=== PATIENT | female | born 1960 | race Two or more races ===

== ENCOUNTER 2018-02-10 07:42 | Outpatient (CLI) | payer OTHER | END 2018-02-10 07:45 | disposition home or self-care (01) | LOC: SONOGRAMA 07:42 | DX: E04.2 Nontoxic multinodular goiter (principal) ==

== ENCOUNTER → 2019-10-12 06:00 | Outpatient (CLI) | payer OTHER ==
[~2019-10-12 06:00] MED LIST: COZAAR50 MG PO
== END | disposition home or self-care (01) ==
LOC: LAB 06:00 → ADM 08:15 → CIR.AMB 10-19 08:15 → EDSTATUS 10-19 08:15 → CIR.AMB 10-19 08:45
PROVIDERS: ATTEND Orthopaedic Surgery
DX: M24.821 Other specific joint derangements of right elbow, not elsewhere classified (principal); M67.931 Unspecified disorder of synovium and tendon, right forearm; Z20.828 Contact with and (suspected) exposure to other viral communicable diseases

== ENCOUNTER 2024-05-25 15:17 | Outpatient (CLI) | payer OTHER | END 2024-05-25 15:21 | disposition home or self-care (01) | LOC: SONOGRAMA 15:17 | PROVIDERS: ATTEND Pathology Anatomic Pathology & Clinical Pathology | DX: D44.0 Neoplasm of uncertain behavior of thyroid gland (principal); E04.2 Nontoxic multinodular goiter ==

== ENCOUNTER 2024-07-31 08:00 | Inpatient (IN) | payer OTHER ==
[~2024-07-31] VITALS: Ht 170.2 cm; Wt 44.5 kg
[2024-07-31] MEDS ORDERED: NORVASC5 MG PO (08:34)
[2024-07-31] MEDS ORDERED: FOSAMAX70 MG PO (08:35)
[2024-07-31] MEDS ORDERED: D3-501250 MCG PO (08:36)
[2024-07-31 08:40] VITALS: BP 138/80
[2024-07-31 08:54] LABS: URINE APPEARANCE Clear; URINE BILIRRUBIN Negative (NEGATIVE); URINE BLOOD Negative; URINE COLOR Yellow; URINE GLUCOSE Negative (NEGATIVE); URINE KETONE Negative (NEGATIVE); URINE LEUKOCYTE Negative; URINE NITRATE Negative; URINE PROTEIN Negative (NEGATIVE); URINE UROBILINOGEN 0.2 E.U./dl
[2024-07-31 08:59] LABS: URINE BACTERIA 70.9 uL (0.0-1933); URINE EPITHELIAL CELLS 37.9 uL (0.0-38.8); URINE RBC 2.5 uL (0.0-20.8)
[2024-07-31 09:09] LABS: INR < 0.93; PARTIAL THROMBOPLASTIN TIME 28.1 SECONDS (22.0-34.0); PROTHROMBIN TIME 10.2 SECONDS (9.0-11.5)
[2024-07-31 09:12] LABS: URINE CAST 0.14 uL (0.0-1.40)
[2024-07-31 09:14] LABS: URINE MUCUS MODERATE
[2024-08-03] MEDS ORDERED: DEXAMETHASONE SODIUM PHOSPHATE 4 MG/ML VIAL ONE (09:59)
[2024-08-03] MEDS ORDERED: MORPHINE SULFATE 4 MG/ML VIAL IV ONE ×2 (13:15→15:40)
[2024-08-03] MEDS ORDERED: ONDANSETRON HCL 2 MG/ML VIAL IV PRN (14:15)
[2024-08-03] MEDS ORDERED: ENALAPRILAT DIHYDRATE 1.25 MG/ML VIAL IV PRN (14:15)
[2024-08-03] MEDS ORDERED: GABAPENTIN 100 MG CAPSULE PO SCH (17:00)
[2024-08-03] MEDS ORDERED: DIPHENHYDRAMINE HCL 75 MG,LIDOCAINE HCL 30 ML,MAG HYDROX/ALUMINUM HYD/SIMETH 30 ML PO SCH (17:00)
[2024-08-03] MEDS ORDERED: CYCLOBENZAPRINE HCL 5 MG TABLET PO SCH (17:00)
[2024-08-03] MEDS ORDERED: TRAMADOL HCL 50 MG TABLET PO SCH (17:00)
[2024-08-03] MEDS ORDERED: ACETAMINOPHEN 500 MG GEL..CAP PO SCH (17:00)
[2024-08-03 17:06] VITALS: BP 134/79; O2SAT 96
[2024-08-03] MEDS ORDERED: PANTOPRAZOLE SODIUM 40 MG/VIAL VIAL IV PUSH SCH (21:00)
[2024-08-03] MEDS ORDERED: MAG HYDROX/ALUMINUM HYD/SIMETH 30 ML BLIST.PACK PO ONE (23:24)
[2024-08-04 00:38] VITALS: BP 127/73; O2SAT 96
[2024-08-04] MEDS ORDERED: MAG HYDROX/ALUMINUM HYD/SIMETH 30 ML BLIST.PACK PO ONE (07:07)
[2024-08-04] MEDS ORDERED: DIPHENHYDRAMINE HCL 12.5 MG/5 ML BLIST.PACK PO ONE (07:07)
[2024-08-04 08:05] VITALS: BP 129/75; O2SAT 95
[2024-08-04] MEDS ORDERED: AMLODIPINE BESYLATE 5 MG TABLET PO SCH (09:00)
[2024-08-04] MEDS ORDERED: LOSARTAN POTASSIUM 50 MG TABLET PO SCH (09:00)
== END 2024-08-04 10:38 | disposition home or self-care (01) | DRG 627 ==
LOC: O/R 08-03 07:11 → SURH 08-03 08:00 → SURG 08-03 13:51
PROVIDERS: ADMIT Surgery; ATTEND Surgery
PROC: 0GBL0ZZ Excision of Right Superior Parathyroid Gland, Open Approach (ICD-10-PCS; 2024-08-03)
PROC: 0GBM0ZZ Excision of Left Superior Parathyroid Gland, Open Approach (ICD-10-PCS; 2024-08-03)
PROC: 0GBP0ZZ Excision of Left Inferior Parathyroid Gland, Open Approach (ICD-10-PCS; principal; 2024-08-03 09:15)
DX: D35.1 Benign neoplasm of parathyroid gland (principal); E21.0 Primary hyperparathyroidism